=== PATIENT | male | born 1965 | race Caucasian/White ===

== ENCOUNTER 2021-07-18 23:48 | Observation (INO) | payer BC ==
[2021-07-19] MEDS ORDERED: hydrALAZINE 20 MG/ML VIAL SLOW IVP PRN (08:04)
[2021-07-19 08:09] VITALS: BMI 30.8
[2021-07-19] MEDS ORDERED: Sodium Chloride 0.9% 1,000 ML IV SCH (08:15)
[2021-07-19] MEDS ORDERED: Dextrose 5% in Water 1,000 ML IV PRN (08:17)
[2021-07-19] MEDS ORDERED: Dextrose 50% Abboject 50 ML SYRINGE SLOW IVP PRN (08:17)
[2021-07-19] MEDS ORDERED: Insulin Regular 300 UNITS/3 ML VIAL SC PRN ×2 (08:17)
[2021-07-19] MEDS ORDERED: Calcium Carbonate 500 MG ChewTAB PO PRN (08:18)
[2021-07-19] MEDS ORDERED: Ondansetron ODT 4 MG TAB PO PRN (08:18)
[2021-07-19] MEDS ORDERED: Ondansetron PF 4 MG/2 ML Vial IVP PRN (08:18)
[2021-07-19] MEDS ORDERED: Acetaminophen 325 MG TAB PO PRN (08:18)
[2021-07-19 08:46] LABS: #Basophils 0.1 thou/uL (0.0-0.2); #Eosinphils 0.2 thou/uL (0.0-0.7); #Lymphocytes 2.2 thou/uL (1.20-3.40); #Monocytes 0.6 thou/uL (0.11-0.59); #Neutrophils 3.6 thou/uL (1.40-6.50); %Basophils 1.1 % (0.0-1.0); %Eosinophils 3.7 % (0.0-10.0); %Lymphocytes 32.1 % (21.0-51.0); %Monocytes 9.5 % (0.0-10.0); %Neutrophils 53.7 % (42.0-75.0); Mean Corpuscular HGB CONC 33.9 g/dL (32.0-36.0); Mean Corpuscular Hemoglobin 31.9 pg (27.0-31.0); Mean Corpuscular Volume 94.2 fL (78.0-98.0); Mean Platelet Volume 9.4 fL (7.4-10.4); Platelet Count 185 thou/uL (130-400); RBC Distribution Width 12.7 % (11.5-14.5); Red Blood Cell (RBC) Count 4.69 mill/uL (4.70-6.10); White Blood Cell (WBC) Count 6.7 thou/uL (4.8-10.8)
[2021-07-19 09:00] LABS: ALT (SGPT) 51 U/L (8-55); AST (SGOT) 24 U/L (5-34); Alkaline Phosphatase 102 U/L (40-110); Anion Gap 14 mmol/L (10-20); BUN (Urea Nitrogen) 9 mg/dL (8.4-25.7); Bilirubin, Total 0.5 mg/dL (0.2-1.2); Calc. Creatinine Clearance 110 mL/min (70-130); Calcium 9.3 mg/dL (7.8-10.44); Carbon Dioxide 24 mmol/L (22-29); Cardiac Risk 6.4 (Less than 4.5); Chloride 104 mmol/L (98-107); Cholesterol 244 mg/dl (< 200 Desired); Globulin 2.7 g/dL (2.4-3.5); Glucose 132 mg/dL (70-105); HDL Cholesterol 38 mg/dL (>60 Neg Risk); LDL Cholesterol, Calculated 169 mg/dL; Magnesium 1.9 mg/dL (1.6-2.6); Potassium 4.1 mmol/L (3.5-5.1); Protein, Total 6.7 g/dL (6.0-8.3); Sodium 138 mmol/L (136-145); Triglycerides 187 mg/dL (Less than 150)
[2021-07-19] MEDS: Aspirin 325 mg Enteric Coated Tablet PO SCH (09:41)
[2021-07-19] MEDS: Famotidine 20 MG TAB PO SCH ×2 (09:42→23:19)
[2021-07-19] MEDS: Sodium Chloride 0.9% 1,000 ML IV SCH ×2 (09:43→18:36)
[2021-07-19] MEDS ORDERED: Iopamidol-370 76% 500 ML 1 ML ONE (10:51)
[2021-07-19] MEDS: Enoxaparin Sodium 40 MG/0.4 ML SYRINGE SC SCH (12:17)
[2021-07-19] MEDS ORDERED: Atorvastatin Calcium 40 MG TAB PO SCH (21:00)
[2021-07-20] MEDS: Famotidine 20 MG TAB PO SCH (09:11)
[2021-07-20] MEDS: Aspirin 325 mg Enteric Coated Tablet PO SCH (09:11)
[2021-07-20 11:36] VITALS: BP 166/99; TEMP 98.3
[2021-07-20] MEDS: Enoxaparin Sodium 40 MG/0.4 ML SYRINGE SC SCH (12:03)
[2021-07-20] MEDS ORDERED: metFORMIN 500 MG TAB PO SCH (17:00)
[2021-07-20] MEDS ORDERED: Atorvastatin Calcium 40 MG TAB PO SCH (21:00)
[2021-07-21] MEDS ORDERED: Losartan 25 MG TAB PO SCH (09:00)
== END 2021-07-20 15:00 | disposition home or self-care (01) ==
LOC: 3SE 07-19 07:55
PROVIDERS: ADMIT Internal Medicine; ATTEND Family Medicine
DX: H53.2 Diplopia (principal); I10 Essential (primary) hypertension; E78.5 Hyperlipidemia, unspecified; I08.3 Combined rheumatic disorders of mitral, aortic and tricuspid valves; I25.10 Atherosclerotic heart disease of native coronary artery without angina pectoris; I25.2 Old myocardial infarction; E11.9 Type 2 diabetes mellitus without complications; F17.210 Nicotine dependence, cigarettes, uncomplicated; Z91.018 Allergy to other foods; Z79.84 Long term (current) use of oral hypoglycemic drugs; Z79.82 Long term (current) use of aspirin; Z95.5 Presence of coronary angioplasty implant and graft
CPT/HCPCS: 36415; 36416; 70496; 70498; 70551; 80053; 80061; 82607; 82746; 83735; 84443; 85025; 93306; 96372; G0378; J1650; J7050; Q9967

== ENCOUNTER 2024-04-27 09:56 | Emergency (ER) | payer BC, OTHER ==
[2024-04-27 12:42] LABS: #Basophils 0.14 10x3/uL (0.0-0.2); %Basophils 1.5 % (0.0-1.0); %Eosinophils 2.9 % (0.0-10.0); %Lymphocytes 28.7 % (21.0-51.0); %Monocytes 9.3 % (0.0-10.0); %Neutrophils 57.3 % (42.0-75.0); Hematocrit 43.6 % (42.0-52.0); Hemoglobin 14.5 g/dL (14.0-18.0); Mean Corpuscular HGB CONC 33.3 g/dL (32.0-36.0); Mean Corpuscular Hemoglobin 31.4 pg (27.0-31.0); Mean Corpuscular Volume 94.4 fL (78.0-98.0); Platelet Count 211 10x3/uL (130-400); RBC Distribution Width 13.6 % (11.5-14.5); Red Blood Cell (RBC) Count 4.62 mill/uL (4.70-6.10)
[2024-04-27] MEDS ORDERED: Iopamidol-370 76% 500 ML MDV (1 ML CHARGE) ONE (12:57)
[2024-04-27 13:01] LABS: ALT (SGPT) 34 U/L (8-55); AST (SGOT) 24 U/L (5-34); Albumin 3.9 g/dL (3.5-5.0); Alkaline Phosphatase 85 U/L (40-110); Anion Gap 14 mmol/L (10-20); BUN (Urea Nitrogen) 13 mg/dL (8.4-25.7); Bilirubin, Total 0.6 mg/dL (0.2-1.2); Calc. Creatinine Clearance 0 mL/min (70-130); Carbon Dioxide 23 mmol/L (22-29); Chloride 104 mmol/L (98-107); Estimated GFR 84; Globulin 3.4 g/dL (2.4-3.5); Glucose 80 mg/dL (70-105); Protein, Total 7.3 g/dL (6.0-8.3); Sodium 137 mmol/L (136-145)
[2024-04-27 13:06] LABS: Troponin I 0.043 ng/mL (< 0.028)
[2024-04-27] MEDS ORDERED: Aspirin Chewable 81 MG TAB ONE (14:51)
[2024-04-27] MEDS ORDERED: traMADol HCl 50 MG TAB ONE (14:51)
== END 2024-04-27 14:46 | disposition home or self-care (01) ==
LOC: ERS 09:56
DX: M54.50 Low back pain, unspecified (principal); M25.559 Pain in unspecified hip; R07.89 Other chest pain; E11.9 Type 2 diabetes mellitus without complications; I10 Essential (primary) hypertension; F17.210 Nicotine dependence, cigarettes, uncomplicated; V89.2XXA Person injured in unspecified motor-vehicle accident, traffic, initial encounter
CPT/HCPCS: 36415; 71045; 74177; 80053; 84484; 85025; 93005; Q9967